=== PATIENT | male | born 1990 | race African-American/Black ===

== ENCOUNTER 2018-03-11 23:16 | Emergency (ER) | payer OTHER ==
[~2018-03-11] VITALS: Ht 170.2 cm; Wt 59.6 kg
[2018-03-11 23:26] VITALS: BP 124/77
[2018-03-11] MEDS ORDERED: LIDOCAINE 1%/EPI 1:100,000 20 ML VIAL. INJ ONE (23:45)
[2018-03-11] MEDS ORDERED: BUPIVACAINE 0.5% 50 ML VIAL. IJ ONE (23:45)
--- NOTE | 2018-03-11 23:49 | PHYS DOC ---
Past Medical History Past Medical History: No Pertinent History Past Surgical History: No Surgical History Alcohol Use: None Drug Use: None Adult General Chief Complaint Chief Complaint: OTHER COMPLAINTS HPI HPI 27-year-old male presents to ER with complaints of rectal pain which has gradually worsened over the past couple of days. Patient reports he had diarrhea for the past week intermittently with one episode today. Patient denies any fever or chills, urinary symptoms, nausea or vomiting, or bloody stools. Patient denies taking any xoog-dyo-opazvae medications for pain. Pt denies previous abscess or hemorrhoids. Review of Systems Review of Systems Constitutional: Denies fever or chills [] Respiratory: Denies cough or shortness of breath [] Cardiovascular: No additional information not addressed in HPI [] GI: Denies abdominal pain, nausea, vomiting, bloody stools. Reports intermittent diarrhea for past week with one episode today. Reports rectal pain : Denies dysuria or hematuria. Denies scrotal or testicle pain, swelling, or genital rash/'s. Denies penile discharge or concerns for STDs Musculoskeletal: Denies back pain or joint pain [] Integument: Denies rash or skin lesions [] Neurologic: Denies headache, focal weakness or sensory changes [] All other systems were reviewed and found to be within normal limits, except as documented in this note. Current Medications Current Medications Current Medications Medications (Trade) Dose Ordered Sig/Bhakti Start Time Stop Time Status Last Admin Dose Admin Bupivacaine HCl (Marcaine 0.5%) 50 ml 1X ONCE 03/11/18 23:45 03/11/18 23:46 DC Lidocaine/ Epinephrine (LIDOCAINE 1%-EPI 1:100,000 Multi-Dose) 20 ml 1X ONCE 03/11/18 23:45 03/11/18 23:46 DC Allergies Allergies Allergies Coded Allergies Type Severity Reaction Last Updated Verified No Known Drug Allergies 12/12/13 No Physical Exam Physical Exam Constitutional: Well developed, well nourished, no acute distress, non-toxic appearance. [] HENT: Normocephalic, atraumatic, oropharynx moist, nose normal. [] Eyes: Pupils equal, conjunctiva normal, no discharge. [] Neck: Normal range of motion, no tenderness, supple Cardiovascular:Heart rate regular Lungs & Thorax: Resp. equal/nonlabored Abdomen: Bowel sounds normal, soft- no distention/rigidity, no tenderness Skin: Warm, dry, no erythema, no rash. [] Back: No tenderness, no CVA tenderness. [] Extremities: No tenderness, no cyanosis, no clubbing, ROM intact, no edema. [] Neurologic: Alert and oriented X 3, normal motor function, normal sensory function, no focal deficits noted. [] Psychologic: Affect normal, judgement normal, mood normal. [] RN at bedside for rectal exam- thrombosed external hemorrhoid- no erythema/rash. Current Patient Data Vital Signs Vital Signs Date Time Temp Pulse Resp B/P (MAP) Pulse Ox O2 Delivery O2 Flow Rate FiO2 03/11/18 23:26 98.0 78 14 124/77 (93) 98 Room Air 98.0 EKG EKG [] Radiology/Procedures Radiology/Procedures Hemorrhoid Incision and Drainage with irrigation by : 0005 Location: External rectal hemorrhoid Anesthesia: Local 1% Lidocaine w/epi with Bupivacaine 0.5% with 25" needle Technique: #15 Blade used for incision- Irrigated. Disrupted loculations w/ instrumentation Complications: Neurovascularly intact post procedure in bilat. LEs. Had no incontinence of bowel or bladder. 3 small clots extracted from hemorrhoid w/copius irrigation. Pt tolerated procedure well with minimal blood loss. Pt reported pain had improved following anesth. and procedure. 48 hour wound check. Course & Med Decision Making Course & Med Decision Making [] Dragon Disclaimer Dragon Disclaimer This electronic medical record was generated, in whole or in part, using a voice recognition dictation system. Departure Departure Impression: Primary Impression: Hemorrhoid thrombosis Disposition: HOME, SELF-CARE Condition: STABLE Referrals: NO PCP (PCP) Patient Instructions: Hemorrhoids, Sitz Bath Additional Instructions: Follow-up with primary care physician for re-evaluation for re-evaluation in 2- 3 days or sooner with concerns. Drink plenty of water and if your bowel movements get harder than over the counter stool softener. Avoid stool softener if you are still having diarrhea. Scripts Hydrocodone/Apap 5-325 (NORCO 5-325 TABLET) 1 Each Tablet 1 TAB PO PRN Q6HRS PRN for PAIN, #10 TAB 0 Refills Prov: WILLIAMS BANGURA APRN 03/12/18 Hydrocortisone Acetate (ANUSOL-HC) 25 Mg Supp.rect 1 SUPP RC BID PRN for PAIN, #10 SUPP 0 Refills Prov: WILLIAMS BANGURA APRN 03/12/18 WILLIAMS BANGURA APRN Mar 11, 2018 23:49
[2018-03-12] MEDS ORDERED: HYDR-3164 PO (00:55)
[2018-03-12] MEDS ORDERED: HYDR25SU18 RC (00:55)
[2018-03-12] MEDS ORDERED: IBUPROFEN 400 MG TABLET. PO ONE (01:15)
[2018-03-12] MEDS ORDERED: HYDR30CR61 TP (04:32)
[2018-03-12] MEDS ORDERED: OXYC1TAB15 PO (04:32)
== END 2018-03-12 01:23 | disposition home or self-care (01) ==
LOC: ER 23:16
DX: K64.5 Perianal venous thrombosis (principal)
CPT/HCPCS: 46083; 99284-25

== ENCOUNTER 2018-03-12 03:44 | Emergency (ER) | payer OTHER ==
[~2018-03-12] VITALS: Ht 165.1 cm; Wt 59.4 kg
[~2018-03-12 03:44] MED LIST: HYDR-3164 PO; HYDR25SU18 RC
--- NOTE | 2018-03-12 03:49 | PHYS DOC ---
Past Medical History Past Medical History: No Pertinent History Past Surgical History: No Surgical History Alcohol Use: None Drug Use: None Adult General Chief Complaint Chief Complaint: HEMORRHOIDS HPI HPI Patient is a 27 year old male who was presented emergency room with pain from a recent hemorrhoid procedure he was seen here a few hours ago when he had an incision of a thrombosed hemorrhoid by mid-level provider who saw him earlier. His pain is increasing and is severe. Current Medications Current Medications Current Medications Medications (Trade) Dose Ordered Sig/Bhakti Start Time Stop Time Status Last Admin Dose Admin Morphine Sulfate (Morphine Sulfate) 4 mg 1X ONCE 03/12/18 04:30 03/12/18 04:31 UNV Allergies Allergies Allergies Coded Allergies Type Severity Reaction Last Updated Verified No Known Drug Allergies 12/12/13 No Physical Exam Physical Exam Constitutional: Well developed, well nourished, no acute distress, non-toxic appearance. [] HENT: Normocephalic, atraumatic, bilateral external ears normal, oropharynx moist, no oral exudates, nose normal. [] Eyes: PERRLA, EOMI, conjunctiva normal, no discharge. [] Neck: Normal range of motion, no tenderness, supple, no stridor. [] Pulmonary: Normal respiratory effort no increased work of breathing no obvious chest wall trauma rexctal hemorrhoid seen with recent incision no active bleeding. no signs of infection Abdomen: Bowel sounds normal, soft, no tenderness, no masses, no pulsatile masses. [] Skin: Warm, dry, no erythema, no rash. [] Back: No tenderness, no CVA tenderness. [] Extremities: No tenderness, no cyanosis, no clubbing, ROM intact, no edema. [] Neurologic: Alert and oriented X 3, normal motor function, normal sensory function, no focal deficits noted. [] Psychologic: Affect normal, judgement normal, mood normal. [] Current Patient Data Vital Signs Vital Signs Date Time Temp Pulse Resp B/P (MAP) Pulse Ox O2 Delivery O2 Flow Rate FiO2 03/12/18 04:10 98.1 87 18 109/61 (77) 96 Room Air 98.1 EKG EKG [] Radiology/Procedures Radiology/Procedures [] Course & Med Decision Making Course & Med Decision Making Pertinent Labs and Imaging studies reviewed. (See chart for details) []morphine im anusol, switch norco to percocet given surgery f/u number for persistnet sypmtoms. Magdalena Disclaimer Magdalena Disclaimer This electronic medical record was generated, in whole or in part, using a voice recognition dictation system. Departure Departure Impression: Primary Impression: Hemorrhoid Disposition: HOME, SELF-CARE Condition: STABLE Referrals: NO PCP (PCP) Scripts Hydrocortisone (ANUSOL-HC) 30 Gm Cream..g. 1 CRISTOBAL TP BID, #30 GM 1 Refill Prov: NEDA OHARA MD 03/12/18 Oxycodone/Apap 5-325 (PERCOCET 5-325 MG TABLET ) 1 Each Tablet 1-2 EACH PO PRN TID PRN for PAIN, #15 TAB pain Prov: NEDA OHARA MD 03/12/18 NEDA OHARA MD Mar 12, 2018 03:49
[2018-03-12 04:10] VITALS: BP 109/61
[2018-03-12] MEDS ORDERED: OXYC1TAB15 PO (04:32)
[2018-03-12] MEDS ORDERED: HYDR30CR61 TP (04:32)
[2018-03-12] MEDS ORDERED: MORPHINE SULFATE 4 MG/ML VIAL. IM ONE (05:00)
== END 2018-03-12 05:05 | disposition home or self-care (01) ==
LOC: ER 03:44
DX: K64.5 Perianal venous thrombosis (principal)
CPT/HCPCS: 96372; 99283; J2270

== ENCOUNTER 2018-06-04 17:12 | Emergency (ER) | payer MEDICAID, OTHER ==
[~2018-06-04] VITALS: Ht 172.7 cm; Wt 59.9 kg
[~2018-06-04 17:12] MED LIST changes: +HYDR30CR61 TP; +OXYC1TAB15 PO
[2018-06-04] MEDS ORDERED: PROCHLORPERAZINE 10 MG/2 ML VIAL. IM ONE (19:00)
[2018-06-04] MEDS ORDERED: KETOROLAC 30 MG/ML VIAL. IM ONE (19:00)
[2018-06-04 20:00] VITALS: BP 111/66
--- NOTE | 2018-06-04 20:00 | PHYS DOC ---
Past Medical History Past Medical History: No Pertinent History Past Surgical History: No Surgical History Alcohol Use: None Drug Use: None Adult General Chief Complaint Chief Complaint: HEADACHE HPI HPI Patient is a 28 year old male who presents with chief complaint of headache. He has had some neck pain some stiffness for the last 3 weeks she is taking a muscle relaxant in [place] for this. He said actually he woke up this morning and the neck pain was gone but he was having a gradual onset slowly progressive diffuse headache worse in the frontal area no vomiting no trouble speaking no visual changes no numbness tingling or weakness no head trauma he said he took his temperature and he thinks it was 113 but he really doesn't remember exactly what it was. Patient has not had any travel out of the country recently does not use any IV drugs currently symptoms are moderate nonradiating in nature Review of Systems Review of Systems Constitutional: Respiratory: Denies cough or shortness of breath [] Cardiovascular: No additional information not addressed in HPI [] Musculoskeletal: Denies back pain or joint pain [] Integument: Denies rash or skin lesions [] All other systems were reviewed and found to be within normal limits, except as documented in this note. Current Medications Current Medications Current Medications Medications (Trade) Dose Ordered Sig/Bhakti Start Time Stop Time Status Last Admin Dose Admin Ketorolac Tromethamine (Toradol 30mg Vial) 30 mg 1X ONCE 06/04/18 19:00 06/04/18 19:01 DC 06/04/18 19:12 30 MG Prochlorperazine Edisylate (Compazine) 10 mg 1X ONCE 06/04/18 19:00 06/04/18 19:01 DC 06/04/18 19:12 10 MG Allergies Allergies Allergies Coded Allergies Type Severity Reaction Last Updated Verified No Known Drug Allergies 12/12/13 No Physical Exam Physical Exam Constitutional: Well developed, well nourished, no acute distress, non-toxic appearance. [] HENT: Normocephalic, atraumatic, bilateral external ears normal, oropharynx moist, no oral exudates, nose normal. [] Eyes: PERRLA, EOMI, conjunctiva normal, no discharge. [] Neck: Normal range of motion, no tenderness, supple, no stridor. [] Pulmonary: Normal respiratory effort no increased work of breathing no obvious chest wall trauma Abdomen: Bowel sounds normal, soft, no tenderness, no masses, no pulsatile masses. [] Skin: Warm, dry, no erythema, no rash. [] Back: No tenderness, no CVA tenderness. [] Extremities: No tenderness, no cyanosis, no clubbing, ROM intact, no edema. [] Neurologic: Alert and oriented X 3, normal motor function, normal sensory function, no focal deficits noted. []Rsdfoe-aeww-trysyx intact gait is normal speech is normal cranial nerves are intact Current Patient Data Vital Signs Vital Signs Date Time Temp Pulse Resp B/P (MAP) Pulse Ox O2 Delivery O2 Flow Rate FiO2 06/04/18 18:30 97.9 100 18 100/62 (75) 99 Room Air 97.9 EKG EKG [] Radiology/Procedures Radiology/Procedures [] Course & Med Decision Making Course & Med Decision Making Pertinent Labs and Imaging studies reviewed. (See chart for details) []Headache nonspecific does not smoke a subarachnoid hemorrhage patient is neurologically intact patient reported incredibly high fever at home as obscene inaccurate he is afebrile here very well-appearing he was given Toradol, Z felt much better return precautions were discussed and he voiced understanding instructions I do not see any obvious evidence of an acute neurologic emergency at this time. Dragon Disclaimer Dragon Disclaimer This electronic medical record was generated, in whole or in part, using a voice recognition dictation system. Departure Departure Impression: Primary Impression: Headache Disposition: 01 HOME, SELF-CARE Condition: STABLE Patient Instructions: Headache, FAQs NEDA OHARA MD Jun 04, 2018 20:00
== END 2018-06-04 20:03 | disposition home or self-care (01) ==
LOC: ER 17:12
DX: R51 Headache (principal); M54.2 Cervicalgia; M43.6 Torticollis
CPT/HCPCS: 96372; 99283; J0780; J1885

== ENCOUNTER 2019-05-17 11:32 | Emergency (ER) | payer OTHER ==
[~2019-05-17] VITALS: Ht 172.7 cm; Wt 60.9 kg
[2019-05-17 12:03] VITALS: BP 107/61
--- NOTE | 2019-05-17 13:47 | PHYS DOC ---
Past Medical History Past Medical History: No Pertinent History Past Surgical History: No Surgical History Smoking Status: Never Smoker Alcohol Use: None Drug Use: None Adult General Chief Complaint Chief Complaint: COUGH HPI HPI Patient is a 29 year old male who presents to the emergency department with co mplaints of a dry cough for the last 4 days. In addition, patient complains of tactile fevers, body aches, and headache. He denies any vision changes, numbness, tingling, weakness, nausea, vomiting, diarrhea, abdominal pain, shortness of breath, wheezing, chest pain, ear pain, sore throat, or shortness of breath. Patient denies any known recent ill contacts. He currently rates his pain a 2 out of 10 on the pain scale, he denies any alleviating factors. All other ROS is neg unless otherwise noted in HPI. Review of Systems Review of Systems See Above Allergies Allergies Allergies Coded Allergies Type Severity Reaction Last Updated Verified No Known Drug Allergies 12/12/13 No Physical Exam Physical Exam See Above Constitutional: Well developed, well nourished, no acute distress, ill appearance HENT: Normocephalic, atraumatic, bilateral external ears normal, bilateral TMs normal, posterior pharynx normal oropharynx moist, nose congested with erythema and edema of the nasal turbinates bilaterally Eyes: PERRLA, conjunctiva injected bilaterally, no discharge. [] Neck: Normal range of motion, no stridor. [] Cardiovascular:Heart rate regular rhythm, no murmur [] Lungs & Thorax: Bilateral breath sounds clear to auscultation, Respirations even and unlabored, no retractions, no respiratory distress Skin: Warm, dry, no erythema, no rash. [] Back: No tenderness Extremities: No cyanosis, ROM intact Neurologic: Alert and oriented X 3, no focal deficits noted. [] Psychologic: Affect normal, judgement normal, mood normal. Current Patient Data Vital Signs Vital Signs Date Time Temp Pulse Resp B/P (MAP) Pulse Ox O2 Delivery O2 Flow Rate FiO2 05/17/19 12:03 98.5 94 20 107/61 (76) 96 Room Air 98.5 EKG EKG [] Radiology/Procedures Radiology/Procedures [] Course & Med Decision Making Course & Med Decision Making Pertinent Labs and Imaging studies reviewed. (See chart for details) [] Dragon Disclaimer Dragon Disclaimer This electronic medical record was generated, in whole or in part, using a voice recognition dictation system. Departure Departure Impression: Primary Impression: Influenza-like illness Disposition: HOME, SELF-CARE Condition: STABLE Referrals: NO PCP (PCP) Patient Instructions: Influenza, Adult, [id number] Additional Instructions: Alternate Tylenol and ibuprofen as needed for fever. Increase clear fluids and rest. Diet as tolerated. Recommend use of [id number]-hermijf flu medications as needed for relief of your symptoms. Follow up with your primary care doctor if symptoms persist, return to the ER symptoms worsen. NEAL EMMANUEL APRN May 17, 2019 13:47
== END 2019-05-17 13:55 | disposition home or self-care (01) ==
LOC: ER 11:32
DX: J11.1 Influenza due to unidentified influenza virus with other respiratory manifestations (principal)
CPT/HCPCS: 99281

== ENCOUNTER 2021-08-10 01:42 | Emergency (ER) | payer OTHER ==
[~2021-08-10] VITALS: Ht 172.7 cm; Wt 130.0 kg
[2021-08-10 02:04] VITALS: BP 112/78
[2021-08-10] MEDS ORDERED: AMOXICILLIN 250 MG CAPSULE. PO ONE (02:30)
[2021-08-10] MEDS ORDERED: IBUPROFEN 400 MG TABLET. PO ONE (02:30)
[2021-08-10] MEDS ORDERED: ACETAMINOPHEN 500 MG TABLET PO ONE (02:30)
--- NOTE | 2021-08-10 02:35 | PHYS DOC ---
Past Medical History Past Medical History: No Pertinent History Past Surgical History: No Surgical History Smoking Status: Never Smoker Alcohol Use: None Drug Use: None General Adult EDM: Chief Complaint: DENTAL PROBLEM HPI: HPI: Patient is a 31 year old male who presented to ER for evaluation left upper [place] pain that he been experiencing for the last 3 days. Patient denies any fever. Patient said the pain radiated up into his left ear. Patient denies any headache, no cough, no fever. Review of Systems: Review of Systems: Constitutional: Denies fever or chills. [] Eyes: Denies change in visual acuity. [] HENT: Denies nasal congestion or sore throat. Positive for left upper dental pain Respiratory: Denies cough or shortness of breath. [] Cardiovascular: Denies chest pain or edema. [] GI: Denies abdominal pain, nausea, vomiting, bloody stools or diarrhea. [] : Denies dysuria. [] Musculoskeletal: Denies back pain or joint pain. [] Integument: Denies rash. [] Neurologic: Denies headache, focal weakness or sensory changes. [] Endocrine: Denies polyuria or polydipsia. [] Lymphatic: Denies swollen glands. [] Psychiatric: Denies depression or anxiety. [] Heart Score: C/O Chest Pain: N/A Risk Factors: Risk Factors: DM, Current or recent (<one month) smoker, HTN, HLP, family history of CAD, obesity. Risk Scores: Score 0 - 3: 2.5% MACE over next 6 weeks - Discharge Home Score 4 - 6: 20.3% MACE over next 6 weeks - Admit for Clinical Observation Score 7 - 10: 72.7% MACE over next 6 weeks - Early Invasive Strategies Current Medications: Current Medications Medications (Trade) Dose Ordered Sig/Bhakti Start Time Stop Time Status Last Admin Dose Admin Acetaminophen (Tylenol) 1,000 mg 1X ONCE 08/10/21 02:30 08/10/21 02:31 DC Amoxicillin (Amoxil) 500 mg 1X ONCE 08/10/21 02:30 08/10/21 02:31 DC Ibuprofen (Motrin) 800 mg 1X ONCE 08/10/21 02:30 08/10/21 02:31 DC Allergies: Allergies: Allergies Coded Allergies Type Severity Reaction Last Updated Verified No Known Drug Allergies 12/12/13 No Physical Exam: PE: Constitutional: Well developed, well nourished, no acute distress, non-toxic appearance. [] HENT: Normocephalic, atraumatic, bilateral external ears normal, oropharynx moist, no oral exudates, nose normal. Left upper first molar with cavity, tender to palpation, no palpable abscess, no trismus Eyes: PERRLA, EOMI, conjunctiva normal, no discharge. [] Neck: Normal range of motion, no tenderness, supple, no stridor. [] Cardiovascular:Heart rate regular rhythm, no murmur [] Lungs & Thorax: Bilateral breath sounds clear to auscultation [] Abdomen: Bowel sounds normal, soft, no tenderness, no masses, no pulsatile masses. [] Skin: Warm, dry, no erythema, no rash. [] Back: No tenderness, no CVA tenderness. [] Extremities: No tenderness, no cyanosis, no clubbing, ROM intact, no edema. [] Neurologic: Alert and oriented X 3, normal motor function, normal sensory function, no focal deficits noted. [] Psychologic: Affect normal, judgement normal, mood normal. [] Current Patient Data: Vital Signs: Vital Signs Date Time Temp Pulse Resp B/P (MAP) Pulse Ox O2 Delivery O2 Flow Rate FiO2 08/10/21 02:04 98.4 78 14 112/78 (89) 100 Room Air 98.4 EKG: EKG: [] Radiology/Procedures: Radiology/Procedures: [] Course & Med Decision Making: Course & Med Decision Making Pertinent Labs and Imaging studies reviewed. (See chart for details) [] Magdalena Disclaimer: Magdalena Disclaimer: This electronic medical record was generated, in whole or in part, using a voice recognition dictation system. Departure Departure Impression: Primary Impression: Dental caries Additional Impression: Pain, dental Disposition: HOME / SELF CARE / HOMELESS Condition: STABLE Referrals: NO PCP (PCP) follow up with your dentist this week. Patient Instructions: Dental Caries Scripts Ibuprofen (IBUPROFEN) 800 Mg Tablet 800 MG PO PRN Q8HRS PRN for PAIN, #30 TAB Prov: EMANI BRUNSON DO 08/10/21 Amoxicillin (AMOXICILLIN) 500 Mg Capsule 1 CAP PO TID, #30 CAP Prov: EMANI BRUNSON DO 08/10/21 EMANI BRUNSON DO August 10, 2021 02:35
[2021-08-10] MEDS ORDERED: IBUP-1060 PO (02:43)
[2021-08-10] MEDS ORDERED: AMOX500C PO (02:43)
== END 2021-08-10 03:04 | disposition home or self-care (01) ==
LOC: ER 01:42
DX: K02.9 Dental caries, unspecified (principal); K08.89 Other specified disorders of teeth and supporting structures; H92.02 Otalgia, left ear
CPT/HCPCS: 99284

== ENCOUNTER 2021-08-31 19:52 | Emergency (ER) | payer OTHER ==
[~2021-08-31] VITALS: Ht 172.7 cm; Wt 59.0 kg
[~2021-08-31 19:52] MED LIST changes: +AMOX500C PO; +IBUP-1060 PO
[2021-08-31 20:25] LABS: BASO % 1 % (0-3); EOS # 0.3 x10^3/uL (0.0-0.7); EOS % 7 % (0-3); LYMPH # 1.4 x10^3/uL (1.0-4.8); LYMPH % 35 % (24-48); MEAN CORPUSCULAR HEMOGLOBIN 28 pg (25-35); MEAN CORPUSCULAR HGB CONC 34 g/dL (31-37); MEAN CORPUSCULAR VOLUME 83 fL (79-100); MONO # 0.4 x10^3/uL (0.0-1.1); MONO % 9 % (0-9); NEUT # 1.9 x10^3/uL (1.8-7.7); NEUT % 48 % (31-73); PLATELET COUNT 151 x10^3/uL (140-400); RED BLOOD COUNT 5.31 x10^6/uL (4.30-5.70); RED CELL DISTRIBUTION WIDTH 13.9 % (11.5-14.5); WHITE BLOOD COUNT 3.9 x10^3/uL (4.0-11.0)
[2021-08-31 20:27] LABS: BACTERIA,URINE 0 /HPF (0-FEW); RBC,URINE 0 /HPF (0-2); WBC,URINE 0 /HPF (0-4)
[2021-08-31] MEDS ORDERED: MORPHINE SULFATE 4 MG/ML INJ. IVP ONE (20:30)
[2021-08-31] MEDS ORDERED: ONDANSETRON PF 4 MG/2 ML VIAL. IVP ONE (20:30)
[2021-08-31] MEDS ORDERED: IV NORMAL SALINE 1000ML BAG 1,000 ML IV ONE (20:30)
[2021-08-31 20:33] LABS: CALCIUM 8.9 mg/dL (8.5-10.1); CREATININE 1.1 mg/dL (0.7-1.3); GFR 93.3; POTASSIUM 4.1 mmol/L (3.5-5.1)
[2021-08-31 20:38] LABS: ALBUMIN 3.8 g/dL (3.4-5.0); TOTAL BILIRUBIN 0.5 mg/dL (0.2-1.0); TOTAL PROTEIN 7.7 g/dL (6.4-8.2)
--- NOTE | 2021-08-31 20:40 | RAD ---
Exam: CT abdomen/pelvis without intravenous contrast Indication: Flank pain Comparison: None Technique: Helical CT imaging performed of the abdomen and pelvis without the use of intravenous cont rast. Sagittal and coronal reformats were obtained. One or more of the following individualized dose reduction techniques were utilized for this examinat ion: 1. Automated exposure control 2. Adjustment of the mA and/or kV according to patient size 3. Use of iterative reconstruction technique. Findings: Inherently limited evaluation without intravenous contrast. Lower chest: Lung bases are clear. The heart is normal in size. Liver: Normal noncontrast appearance of the liver. Gallbladder/Biliary Tree: Normal. Pancreas: Normal. Spleen: Normal. Adrenal Glands: Normal. Kidneys/Ureters/Bladder: Kidneys are normal in size. There is no nephrolithiasis or hydronephrosis. T he ureters are nondistended. The urinary bladder is unremarkable. Reproductive Organs: Prostate gland is normal. Stomach, small bowel, and colon: Stomach is distended with fluid and debris. There is no small bowel obstruction. Large volume of stool. The colon is otherwise unremarkable. The appendix is normal. Vasculature: No aortic aneurysm. Lymph Nodes: No lymphadenopathy. Peritoneum and retroperitoneum: No free fluid or free air. Bones: No acute osseous abnormality. Miscellaneous: None. IMPRESSION: No urolithiasis or hydronephrosis. Electronically signed by: Lin Jacobs MD (08/31/2021 8:37 PM) [facility]
[2021-08-31] MEDS ORDERED: IBUP-1027 PO ×2 (21:24→22:08)
[2021-08-31] MEDS ORDERED: LIDO700A21 TP ×2 (21:24→22:08)
[2021-08-31] MEDS ORDERED: ACET325T9 PO ×2 (21:24→22:08)
[2021-08-31 21:30] VITALS: BP 104/55
[2021-08-31] MEDS ORDERED: KETOROLAC 30 MG/ML VIAL. IVP ONE (22:00)
[2021-08-31] MEDS ORDERED: LIDOCAINE (700MG/PATCH) PATCH. TD ONE (22:00)
--- NOTE | 2021-08-31 23:17 | PHYS DOC ---
Past Medical History Past Medical History: No Pertinent History Past Surgical History: No Surgical History Smoking Status: Never Smoker Alcohol Use: None Drug Use: None General Adult EDM: Chief Complaint: FLANK PAIN HPI: HPI: 31 yo M, no sig pmhx/pshx/allergies presents with several hours of R flank/R lower rib pain. No trauma. No f/c/n/v/cp/sob/palp/diaphroesis/abd pain/dysuria/hematuria/diarrhea. No sick contact. No travel. No alcohol or other illicit drug use. Review of Systems: Review of Systems: Constitutional: Denies fever or chills. [] Eyes: Denies change in visual acuity. [] HENT: Denies nasal congestion or sore throat. [] Respiratory: Denies cough or shortness of breath. [] Cardiovascular: Denies chest pain or edema. [] GI: + R flank/R lower rib pain, Denies abdominal pain, nausea, vomiting, bloody stools or diarrhea. [] : Denies dysuria. [] Musculoskeletal: Denies back pain or joint pain. [] Integument: Denies rash. [] Neurologic: Denies headache, focal weakness or sensory changes. [] Endocrine: Denies polyuria or polydipsia. [] Lymphatic: Denies swollen glands. [] Psychiatric: Denies depression or anxiety. [] Heart Score: C/O Chest Pain: No Risk Factors: Risk Factors: DM, Current or recent (<one month) smoker, HTN, HLP, family history of CAD, obesity. Risk Scores: Score 0 - 3: 2.5% MACE over next 6 weeks - Discharge Home Score 4 - 6: 20.3% MACE over next 6 weeks - Admit for Clinical Observation Score 7 - 10: 72.7% MACE over next 6 weeks - Early Invasive Strategies Current Medications: Current Medications Medications (Trade) Dose Ordered Sig/Bhakti Start Time Stop Time Status Last Admin Dose Admin Ketorolac Tromethamine (Toradol 30mg Vial) 30 mg 1X ONCE 08/31/21 22:00 08/31/21 21:45 DC Lidocaine (Lidoderm) 1 patch 1X ONCE 08/31/21 22:00 08/31/21 21:45 DC Morphine Sulfate (Morphine Sulfate) 4 mg 1X ONCE 08/31/21 20:30 08/31/21 20:31 DC 08/31/21 20:33 4 MG Ondansetron HCl (Zofran) 4 mg 1X ONCE 08/31/21 20:30 08/31/21 20:31 DC 08/31/21 20:33 4 MG Sodium Chloride 1,000 ml @ 999 mls/hr 1X ONCE 08/31/21 20:30 08/31/21 21:30 DC 08/31/21 20:33 999 MLS/HR Allergies: Allergies: Allergies Coded Allergies Type Severity Reaction Last Updated Verified No Known Drug Allergies 12/12/13 No Physical Exam: PE: Constitutional: Well developed, well nourished, no acute distress, non-toxic appearance. [] HENT: Normocephalic, atraumatic, bilateral external ears normal, oropharynx moist, no oral exudates, nose normal. [] Eyes: PERRLA, EOMI, conjunctiva normal, no discharge. [] Neck: Normal range of motion, no tenderness, supple, no stridor. [] Cardiovascular:Heart rate regular rhythm, no murmur [] Lungs & Thorax: +reproducible mild ttp of R last lower axillary rib/flank, Bilateral breath sounds clear to auscultation [] Abdomen: Bowel sounds normal, soft, no tenderness, no masses, no pulsatile masses. [] Skin: Warm, dry, no erythema, no rash. [] Back: No tenderness, no CVA tenderness. [] Extremities: No tenderness, no cyanosis, no clubbing, ROM intact, no edema. [] Neurologic: Alert and oriented X 3, normal motor function, normal sensory function, no focal deficits noted. [] Psychologic: Affect normal, judgement normal, mood normal. [] Current Patient Data: Labs: Laboratory Tests Test 08/31/21 20:05 08/31/21 20:15 Urine Collection Type Unknown Urine Color (Auto) Light yellow Urine Turbidity Clear Urine pH (Auto) 6.5 (<5.0-8.0) Urine Specific [place] 1.027 (1.000-1.030) Urine Protein (Auto) Negative mg/dL (Negative) Urine Glucose (Auto)(UA) Negative mg/dL (Negative) Urine Ketones (Auto) Negative mg/dL (Negative) Urine Blood (Auto) Negative (Negative) Urine Nitrite (Auto) Negative (Negative) Urine Bilirubin (Auto) Negative (Negative) Urine Urobilinogen (Auto) Normal mg/dL (Normal) Urine Leukocyte Esterase (Auto) Negative (Negative) Urine RBC 0 /HPF (0-2) Urine WBC 0 /HPF (0-4) Urine Bacteria 0 /HPF (0-FEW) Urine Mucus Mod /LPF White Blood Count 3.9 x10^3/uL (4.0-11.0) L Red Blood Count 5.31 x10^6/uL (4.30-5.70) Hemoglobin 15.0 g/dL (13.0-17.5) Hematocrit 44.0 % (39.0-53.0) Mean Corpuscular Volume 83 fL (79-100) Mean Corpuscular Hemoglobin 28 pg (25-35) Mean Corpuscular Hemoglobin Concent 34 g/dL (31-37) Red Cell Distribution Width 13.9 % (11.5-14.5) Platelet Count 151 x10^3/uL (140-400) Neutrophils (%) (Auto) 48 % (31-73) Lymphocytes (%) (Auto) 35 % (24-48) Monocytes (%) (Auto) 9 % (0-9) Eosinophils (%) (Auto) 7 % (0-3) H Basophils (%) (Auto) 1 % (0-3) Neutrophils # (Auto) 1.9 x10^3/uL (1.8-7.7) Lymphocytes # (Auto) 1.4 x10^3/uL (1.0-4.8) Monocytes # (Auto) 0.4 x10^3/uL (0.0-1.1) Eosinophils # (Auto) 0.3 x10^3/uL (0.0-0.7) Basophils # (Auto) 0.0 x10^3/uL (0.0-0.2) Sodium Level 142 mmol/L (136-145) Potassium Level 4.1 mmol/L (3.5-5.1) Chloride Level 104 mmol/L (98-107) Carbon Dioxide Level 31 mmol/L (21-32) Anion Gap 7 (6-14) Blood Urea Nitrogen 13 mg/dL (8-26) Creatinine 1.1 mg/dL (0.7-1.3) Estimated GFR (Cockcroft-Gault) 93.3 BUN/Creatinine Ratio 12 (6-20) Glucose Level 61 mg/dL (70-99) L Calcium Level 8.9 mg/dL (8.5-10.1) Total Bilirubin 0.5 mg/dL (0.2-1.0) Aspartate Amino Transferase (AST) 29 U/L (15-37) Alanine Aminotransferase (ALT) 17 U/L (16-63) Alkaline Phosphatase 52 U/L (46-116) Total Protein 7.7 g/dL (6.4-8.2) Albumin 3.8 g/dL (3.4-5.0) Albumin/Globulin Ratio 1.0 (1.0-1.7) Lipase 243 U/L (73-393) Laboratory Tests 08/31/21 20:15 Laboratory Tests 08/31/21 20:15 Vital Signs: Vital Signs Date Time Temp Pulse Resp B/P (MAP) Pulse Ox O2 Delivery O2 Flow Rate FiO2 08/31/21 21:30 68 20 104/55 (71) 100 Room Air 08/31/21 20:11 98.2 98.2 EKG: EKG: [] Radiology/Procedures: Radiology/Procedures: [] Course & Med Decision Making: Course & Med Decision Making Pertinent Labs and Imaging studies reviewed. (See chart for details) Additional Social History: PMD from non-affiliated facility. Patient Lives at home. Family History: Non-pertinent to today's complaint. Nursing Notes Reviewed Previous Medical Records requested via [facility] Web: Reviewed by me. EMERGENT LABS AND DIAGNOSTIC STUDIES: Results were reviewed and interpreted by me as below CBC: Shows no evidence of leukocytosis or anemia. Platelet count is normal Chemistry: Shows no electrolyte abnormalities Otherwise within normal limits, unremarkable or as noted above. PROCEDURE: CT ABDOMEN PELVIS WO CONTRAST IMPRESSION: No urolithiasis or hydronephrosis. Electronically signed by: Lin Jacobs MD (08/31/2021 8:37 PM) [facility] EMERGENCY DEPARTMENT COURSE/ MEDICAL DECISION MAKING: The patient was placed on a cardiac catheterization technologist, continuous pulse oximetry and was given supplemental oxygen. I examined the patient, evaluated and addressed patient's chief complaint. The patient was treated with toradol, lidocaine patch, morphine, zofran. r/o appy vs renal stone vs rib fracture. CT a/p showing no acute pathology. On re-assessment, patient feels much better. Possibly muscle strain. Vitals wnl, well appearing. Stable for dc home with routine pmd f/u. The patient understands that todays Emergency Department evaluation does not represent a comprehensive medical workup, and it is impossible to diagnose all possible illnesses from a single Emergency Department visit. The patient verbalized understanding that it is absolutely necessary to have fol low-up with regular primary care physician within 1-2 days for more detailed workup and continued exam. I explained the findings and plan to the patient, who expressed verbal understanding and agreed with plan for discharge and follow up. The patient was given after care instructions and welcomed to return to the ED for re-evaluation in 8-12 hours, especially for any new or worsening symptoms. The patient was stable at the time of discharge. DIAGNOSTIC IMPRESSION: 1. R lower flank/rib pain DISPOSITION: Disposition: Discharge Home. Condition: Improved Follow-Up: PMD Prescriptions: tylenol, ibuprofen, lidocaine patches Return to the Emergency Department for new or worsening symptoms. Magdalena Disclaimer: Magdalena Disclaimer: This electronic medical record was generated, in whole or in part, using a voice recognition dictation system. Departure Departure Impression: Primary Impression: Rib pain on right side Additional Impression: Pain in right axilla Disposition: HOME / SELF CARE / HOMELESS Condition: IMPROVED Patient Instructions: Muscle Strain Additional Instructions: Please follow up with your primary care provider. Scripts Acetaminophen (TYLENOL) 325 Mg Tablet 1-2 TAB PO QID, #30 TAB 0 Refills Prov: FRANCE PAZ MD 08/31/21 Ibuprofen (IBUPROFEN) 400 Mg Tablet 400 MG PO PRN Q6HRS PRN for INFLAMMATION, #30 TAB Prov: FRANCE PAZ MD 08/31/21 Lidocaine (Lidocaine PATCH ) 1 Each Adh..patch 1 EACH TP DAILY for FOR LOCAL PAIN, #30 PATCH REMOVE AFTER 12 HOURS Prov: FRANCE PAZ MD 08/31/21 FRANCE PAZ MD August 31, 2021 23:17
== END 2021-08-31 21:36 | disposition home or self-care (01) ==
LOC: ER 19:52
DX: R07.81 Pleurodynia (principal); M79.621 Pain in right upper arm
CPT/HCPCS: 36415; 74176; 80053; 81001; 83690; 85025; 96361; 96374; 96375; 99284; J2270; J2405; J7030